=== PATIENT | female | born 1950 | race Caucasian/White ===

== ENCOUNTER → 2017-01-16 | Outpatient (CLI) | payer OTHER | LOC: BMCIMAGING 10:54 | PROVIDERS: ATTEND Internal Medicine | DX: R92.8 Other abnormal and inconclusive findings on diagnostic imaging of breast (principal) | CPT/HCPCS: G0206 ==

== ENCOUNTER → 2017-07-29 | Outpatient (CLI) | payer OTHER | LOC: BMCIMAGING 09:36 | PROVIDERS: ATTEND Internal Medicine | DX: R92.8 Other abnormal and inconclusive findings on diagnostic imaging of breast (principal); Z80.3 Family history of malignant neoplasm of breast | CPT/HCPCS: G0204 ==

== ENCOUNTER 2017-09-09 16:09 | Emergency (ER) | payer OTHER ==
[2017-09-09 16:22] VITALS: RESP 16; TEMP 97.3; O2SAT 96
[2017-09-09] MEDS ORDERED: ONDANSETRON 4 MG/2 ML VIAL IVP ONE (16:24)
[2017-09-09] MEDS ORDERED: NS 1,000 ML IV ONE ×2 (16:24→17:56)
--- NOTE | 2017-09-09 16:27 | EDPHY ---
H & P Stated Complaint: FLU-LIKE/WEAKNESS, NAUSEA Time Seen by Provider: 09/09/17 16:17 HPI/ROS: CHIEF COMPLAINT: Lightheadedness HISTORY OF PRESENT ILLNESS: The patient is a 67-year-old female who comes to the emergency department complaining of lightheadedness. She states that over the last 12 days she has had a sore throat, runny nose, nausea and diarrhea. Her diarrhea resolved 2 days ago. She has not had a fever. No rash. No vomiting. No chest pain or shortness of breath. She does have an occasional cough. Her sore throat and runny nose are also resolving. She states overall that she is getting better except that she continues to feel lightheaded when she tries to stand up and walk. She thinks that she is dehydrated except she is able to drink well and is urinating clear urine. She did not have any blood in her stool. REVIEW OF SYSTEMS: Constitutional: See HPI EENTM: denies: blurred vision, double vision, nose congestion Respiratory: denies: cough, shortness of breath Cardiac: denies: chest pain, irregular heart rate, lightheadedness, palpitations Gastrointestinal/Abdominal: See HPI Genitourinary: denies: dysuria, frequency, hematuria, pain Musculoskeletal: denies: joint pain, muscle pain Skin: denies: lesions, rash, jaundice, bruising Neurological: denies: headache, numbness, paresthesia, tingling, dizziness, weakness Hematologic/Lymphatic: denies: blood clots, easy bleeding, easy bruising Immunologic/allergic: denies: HIV/AIDS, transplant EXAM: GENERAL: Well-appearing, well-nourished and in no acute distress. HEAD: Atraumatic, normocephalic. EYES: Pupils equal round and reactive to light, extraocular movements intact, sclera anicteric, conjunctiva are normal. ENT: TMs normal, nares patent, oropharynx clear without exudates. Moist mucous membranes. NECK: Normal range of motion, supple without lymphadenopathy or JVD. LUNGS: Breath sounds clear to auscultation bilaterally and equal. No wheezes rales or rhonchi. HEART: Regular rate and rhythm without murmurs, rubs or gallops. ABDOMEN: Soft, nontender, normoactive bowel sounds. No guarding, no rebound. No masses appreciated. BACK: No CVA tenderness, no spinal tenderness, step-offs or deformities EXTREMITIES: Normal range of motion, no pitting or edema. No clubbing or cyanosis. NEUROLOGICAL: Cranial nerves II through XII grossly intact. Normal speech, normal gait. 5/5 strength, normal movement in all extremities, normal sensation PSYCH: Normal mood, normal affect. SKIN: Warm, dry, normal turgor, no visible rashes or lesions. Source: Patient Exam Limitations: No limitations - Personal History Current Tetanus Diphtheria and Acellular Pertussis (TDAP): Yes Tetanus Vaccine Date: 2009 - Medical/Surgical History Hx Asthma: No Hx Chronic Respiratory Disease: No Hx Diabetes: No Hx Cardiac Disease: No Hx Renal Disease: No Hx Cirrhosis: No Hx Alcoholism: No Hx HIV/AIDS: No Hx Splenectomy or Spleen Trauma: No Other PMH: Hypercholesterolemia, GERD, chronic back pain, narcotic dependence, osteoporosis, kyphoplasty 10/25/15 - Family History Significant Family History: No pertinent family hx - Social History Smoking Status: Never smoked Alcohol Use: Sober Drug Use: None Constitutional: Initial Vital Signs Temperature (C) 36.3 C 09/09/17 16:20 Heart Rate 76 09/09/17 16:20 Respiratory Rate 16 09/09/17 16:20 Blood Pressure 161/82 H 09/09/17 16:20 O2 Sat (%) 96 09/09/17 16:20 O2 Delivery Mode Room Air Allergies/Adverse Reactions: duloxetine HCl [From Cymbalta] Allergy (Verified 04/16/16 21:23) Sulfa (Sulfonamide Antibiotics) Allergy (Verified 04/16/16 21:22) Home Medications: Medication Instructions Recorded Acetaminophen [Tylenol] 500 mg PO TID PRN 10/20/15 Calcium Citrate W/Vit D [Citracal 1 each PO DAILY 10/20/15 + D] Cholecalciferol Vit D3 [Vitamin D3 2,000 units PO DAILY 10/20/15 2000 units (OTC)] LORazepam [Ativan] 0.5 mg PO HS PRN 10/20/15 [place]-3 Fatty Acids [Fish Oil] 1,000 mg PO DAILY 10/20/15 Ranitidine HCl [Zantac] 150 mg PO BID 10/20/15 Simvastatin [Zocor] 20 mg PO HS 10/20/15 Colace 100 MG (*) 03/02/16 Hydrocodone Bitartrate 03/02/16 Zofran 03/02/16 Medical Decision Making - Diagnostics EKG Interpretation: An EKG obtained and was read and documented in trace view. Please see trace view for full reading and report. Sinus rhythm, unchanged from previous Imaging Results: Imaging Impressions Head CT 09/09/17 17:56 Impression: 1. Normal CT brain without contrast. 2. No sinusitis or hemorrhage. 3.Consider MRI of the brain, if there is continued clinical concern. Findings and recommendations discussed with Emergency Department physician, OLEG CH at 18:28 hour, 09/09/2017. Final report concurs with initial preliminary interpretation. Imaging: Discussed imaging studies w/ machine scallop cutter Radiologist ED Course/Re-evaluation: 5:15 p.m. we discussed the patient's test results which are very reassuring. The patient is feeling better but still feels slightly nauseous and headachy. We will try Phenergan and observed. 7:15 p.m. the patient's headache is improved. She took 1 of her home doses of Ativan and feels much better. She is relieved with the negative test work. She states that she is starting to have a panic attack and would like to take some Valium. This usually works for her. We will give her a dose of this. The patient is feeling better. I will discharge her at this time and she will go home to rest. We discussed expected course and indications for returning. Differential Diagnosis: Partial list of the Differential diagnosis considered include but were not limited to; viral syndrome, influenza, upper respiratory tract infection, gastroenteritis, anxiety and although unlikely based on the history and physical exam, I also considered CVA, hemorrhage, sepsis, endocarditis. I discussed these differential diagnoses and the plan with the patient as well as the usual and expected course. The patient understands that the diagnosis is provisional and that in medicine we are not always correct and that further workup is often warranted. Usual and customary warnings were given. All of the patient's questions were answered. The patient was instructed to return to the emergency department should the symptoms at all worsen or return, otherwise to followup with the physician as we discussed. - Data Points Laboratory Results: Laboratory Results 09/09/17 16:30 09/09/17 16:30 09/09/17 09/09/17 09/09/17 18:15 17:07 16:30 WBC RBC Hgb Hct MCV MCH MCHC RDW Plt Count MPV Neut % (Auto) Lymph % (Auto) [place] % (Auto) Eos % (Auto) Baso % (Auto) Nucleat RBC Rel Count Absolute Neuts (auto) Absolute Lymphs (auto) Absolute Monos (auto) Absolute Eos (auto) Absolute Basos (auto) Absolute Nucleated RBC Immature Gran % Immature Gran # Sodium 134 mEq/L L mEq/L (135-145) Potassium 4.2 mEq/L mEq/L (3.5-5.2) Chloride 97 mEq/L mEq/L (97-110) Carbon Dioxide 24 mEq/l mEq/l (22-31) Anion Gap 13 mEq/L mEq/L (8-16) BUN 9 mg/dL mg/dL (7-23) Creatinine 0.6 mg/dL mg/dL (0.6-1.0) Estimated GFR > 60 Glucose 95 mg/dL mg/dL (70-100) Calcium 8.8 mg/dL mg/dL (8.5-10.4) Total Bilirubin 0.4 mg/dL mg/dL (0.1-1.4) Conjugated Bilirubin 0.2 mg/dL mg/dL (0.0-0.5) Unconjugated Bilirubin 0.2 mg/dL mg/dL (0.0-1.1) AST 20 IU/L IU/L (14-46) ALT 37 IU/L IU/L (9-52) Alkaline Phosphatase 53 IU/L IU/L (38-126) Total Protein 6.2 g/dL L g/dL (6.3-8.2) Albumin 3.7 g/dL g/dL (3.5-5.0) Urine Color PALE YELLOW Urine Appearance CLEAR Urine pH 6.5 (5.0-7.5) Ur Specific [place] <= 1.005 (1.002-1.030) Urine Protein NEGATIVE (NEGATIVE) Urine Ketones NEGATIVE (NEGATIVE) Urine Blood NEGATIVE (NEGATIVE) Urine Nitrate NEGATIVE (NEGATIVE) Urine Bilirubin NEGATIVE (NEGATIVE) Urine Urobilinogen 0.2 EU EU (0.2-1.0) Ur Leukocyte Esterase NEGATIVE (NEGATIVE) Urine RBC NONE SEEN /hpf /hpf (0-3) Urine WBC NONE SEEN /hpf /hpf (0-3) Ur Epithelial Cells TRACE /lpf /lpf (NONE-1+) Urine Glucose NEGATIVE (NEGATIVE) Influenza A,B Rapid NEGATIVE FOR FLU (NEGATIVE) 09/09/17 16:30 WBC 5.03 10^3/uL 10^3/uL (3.80-9.50) RBC 4.55 10^6/uL 10^6/uL (4.18-5.33) Hgb 13.2 g/dL g/dL (12.6-16.3) Hct 39.1 % % (38.0-47.0) MCV 85.9 fL fL (81.5-99.8) MCH 29.0 pg pg (27.9-34.1) MCHC 33.8 g/dL g/dL (32.4-36.7) RDW 12.0 % % (11.5-15.2) Plt Count 312 10^3/uL 10^3/uL (150-400) MPV 8.4 fL L fL (8.7-11.7) Neut % (Auto) 59.3 % % (39.3-74.2) Lymph % (Auto) 26.8 % % (15.0-45.0) Pierce % (Auto) 10.1 % % (4.5-13.0) Eos % (Auto) 3.0 % % (0.6-7.6) Baso % (Auto) 0.2 % L % (0.3-1.7) Nucleat RBC Rel Count 0.0 % % (0.0-0.2) Absolute Neuts (auto) 2.98 10^3/uL 10^3/uL (1.70-6.50) Absolute Lymphs (auto) 1.35 10^3/uL 10^3/uL (1.00-3.00) Absolute Monos (auto) 0.51 10^3/uL 10^3/uL (0.30-0.80) Absolute Eos (auto) 0.15 10^3/uL 10^3/uL (0.03-0.40) Absolute Basos (auto) 0.01 10^3/uL L 10^3/uL (0.02-0.10) Absolute Nucleated RBC 0.00 10^3/uL 10^3/uL (0-0.01) Immature Gran % 0.6 % % (0.0-1.1) Immature Gran # 0.03 10^3/uL 10^3/uL (0.00-0.10) Sodium Potassium Chloride Carbon Dioxide Anion Gap BUN Creatinine Estimated GFR Glucose Calcium Total Bilirubin Conjugated Bilirubin Unconjugated Bilirubin AST ALT Alkaline Phosphatase Total Protein Albumin Urine Color Urine Appearance Urine pH Ur Specific [place] Urine Protein Urine Ketones Urine Blood Urine Nitrate Urine Bilirubin Urine Urobilinogen Ur Leukocyte Esterase Urine RBC Urine WBC Ur Epithelial Cells Urine Glucose Influenza A,B Rapid Medications Given: Discontinued Medications Diazepam (Valium) 2.5 mg IVP EDNOW ONE Stop: 09/09/17 19:21 Last Admin: 09/09/17 19:28 Dose: 2.5 mg Sodium Chloride (Ns) 1,000 mls @ 0 mls/hr IV EDNOW ONE; Wide Open PRN Reason: Protocol Stop: 09/09/17 16:25 Last Admin: 09/09/17 16:39 Dose: 1,000 mls Sodium Chloride (Ns) 1,000 mls @ 0 mls/hr IV EDNOW ONE; Wide Open PRN Reason: Protocol Stop: 09/09/17 17:57 Last Admin: 09/09/17 18:01 Dose: 1,000 mls Ondansetron HCl (Zofran) 4 mg IVP EDNOW ONE Stop: 09/09/17 16:25 Last Admin: 09/09/17 16:39 Dose: 4 mg Promethazine HCl (Phenergan) 12.5 mg IVP EDNOW ONE Stop: 09/09/17 17:18 Last Admin: 09/09/17 17:22 Dose: 12.5 mg Promethazine HCl (Phenergan) 12.5 mg IVP EDNOW ONE Stop: 09/09/17 17:57 Last Admin: 09/09/17 18:37 Dose: 12.5 mg Departure - Departure Disposition: Home, Routine, Self-Care Clinical Impression: Dehydration Diarrhea Qualifiers: Diarrhea type: infectious Qualified Code(s): A09 - Infectious gastroenteritis and colitis, unspecified Headache Qualifiers: Headache type: unspecified Headache chronicity pattern: acute headache Intractability: intractable Qualified Code(s): R51 - Headache Condition: Good Instructions: Dehydration (ED), Acute Headache (ED) Referrals: Yusra Arriaza MD [Primary Care Provider] - As per Instructions
[2017-09-09 16:36] LABS: PLATELET COUNT 312 10^3/uL (150-400)
--- NOTE | 2017-09-09 16:44 | CPEKG ---
Heart Rate: 77 RR Interval: 779 P-R Interval: 152 QRSD Interval: 70 QT Interval: 400 QTC Interval: 453 P [place]: 71 QRS [place]: 73 T Wave [place]: 73 EKG Severity - BORDERLINE ECG - EKG Impression: SINUS RHYTHM EKG Impression: BORDERLINE T ABNORMALITIES, ANT-LAT LEADS EKG Impression: Unchanged from previous Electronically Signed By: Daniel Yepez 09-Sep-2017 16:51:58
[2017-09-09] MEDS ORDERED: PROMETHAZINE HCL 25 MG/ML INJ IVP ONE ×2 (17:17→17:56)
[2017-09-09] MEDS ORDERED: DIAZEPAM 10 MG/2 ML SYR IVP ONE (19:20)
[2017-09-09 19:37] VITALS: BP 135/82; PULSE 75
== END 2017-09-09 19:31 | disposition home or self-care (01) ==
LOC: CED 16:09
DX: E86.0 Dehydration (principal); A09 Infectious gastroenteritis and colitis, unspecified; R51 Headache; E86.9 Volume depletion, unspecified
CPT/HCPCS: 70450; 93005; 96361; 96374; 96375; 96376; 99285; J2405; J2550; 80048-PO; 80076-PO; 81003-PO; 81015-PO; 85025-PO; 87400-PO

== ENCOUNTER → 2018-10-16 | Outpatient (CLI) | payer OTHER | LOC: CIMAGING 10:14 ==

== ENCOUNTER → 2018-12-21 | Outpatient (CLI) | payer OTHER | LOC: FIMAGING 13:55 | PROVIDERS: ATTEND Internal Medicine Rheumatology | DX: Z13.820 Encounter for screening for osteoporosis (principal); M81.0 Age-related osteoporosis without current pathological fracture; Z78.0 Asymptomatic menopausal state ==